=== PATIENT | female | born 1970 | race Caucasian/White ===

== ENCOUNTER 2022-06-04 11:11 | Inpatient (IN) ==
[2022-06-04 11:44] LABS: Basophils # 0.1 10*3/uL (0.0-0.2); Basophils % 0.6 % (0.0-0.8); Eosinophils # 0.1 10*3/uL (0.0-0.87); Eosinophils % 0.7 % (0.00-10.9); Hematocrit 45.5 VOL% (35.7-47.0); Hemoglobin 15.7 GM/DL (12.0-16.0); Immature Granulocytes % 0.7 %; Immature Granulocytes Absolute 0.08 #; Lymphocytes # 1.8 10*3/uL (1.4-4.0); Mean Corpuscular HGB Conc 34.5 GM/DL (32-36); Mean Corpuscular Volume 96.2 FL (87-102); Mean Platelet Volume 11.3 FL (9.6-12.0); Monocytes # 0.5 10*3/uL (0.11-0.8); Monocytes % 4.6 % (1.7-12.7); Neutrophils % 77.4 % (38.7-73.9); Platelet Count 270 T/CUMM (130-400); Red Blood Count 4.73 MC/CUMM (3.8-5.5); Red Cell Distribution Width 13.6 % (9.3-17.3); White Blood Count 11.4 T/CUMM (4-12)
[2022-06-04 12:12] LABS: Albumin 3.9 G/DL (3.4-5.0); Bilirubin,Total 0.5 MG/DL (0.20-1.00); Calcium 9.7 MG/DL (8.5-10.1); Osmolality,Calculated 293.8 MOS/KG (273-304); Potassium 4.6 MMOL/L (3.5-5.1); Total Protein 7.6 G/DL (6.4-8.2)
[2022-06-04 13:27] LABS: PT Patient Result 10.8 SECS (10.1-12.1); Partial Thromboplastin Time 29.5 SECS (23.7-32.9)
[2022-06-04 14:30] LABS: Hepatitis B Core IgM Quant < 0.05 Index; Hepatitis B Surface Ag Quant < 0.10 Index; Hepatitis B Surface Ag Result Non-Reactive (NonReactive); Hepatitis C Virus Ab Result Non-Reactive (NonReactive)
[2022-06-04] MEDS ORDERED: ONDANSETRON 4 MG/2 ML VIAL IV PRN (14:35)
[2022-06-04] MEDS ORDERED: hydrALAZINE 20 MG/1 ML VIAL IV PRN (14:35)
[2022-06-04] MEDS ORDERED: GLUCAGON 1 MG VIAL IM PRN (14:35)
[2022-06-04] MEDS ORDERED: ALBUTEROL/IPRATROPIUM 3 ML NEB RESP TX PRN (14:35)
[2022-06-04] MEDS ORDERED: DEXTROSE 10% 250 ML BAG IV PRN (14:40)
[2022-06-04] MEDS ORDERED: ENOXAPARIN 120 MG/0.8 ML SYRINGE SUBCUT SCH (15:00)
[2022-06-04] MEDS: PANTOPRAZOLE 40 MG TABLET PO SCH (16:51)
[2022-06-04] MEDS: INSULIN REGULAR 100 UNIT/ML SUBCUT SCH ×2 (18:07→21:14)
[2022-06-05 04:33] LABS: Basophils # 0.1 10*3/uL (0.0-0.2); Basophils % 0.5 % (0.0-0.8); Eosinophils # 0.2 10*3/uL (0.0-0.87); Eosinophils % 1.4 % (0.00-10.9); Hematocrit 44.7 VOL% (35.7-47.0); Hemoglobin 14.9 GM/DL (12.0-16.0); Immature Granulocytes % 0.4 %; Immature Granulocytes Absolute 0.05 #; Lymphocytes # 4.9 10*3/uL (1.4-4.0); Mean Corpuscular HGB Conc 33.3 GM/DL (32-36); Mean Corpuscular Volume 98.5 FL (87-102); Mean Platelet Volume 11.4 FL (9.6-12.0); Monocytes # 0.8 10*3/uL (0.11-0.8); Monocytes % 6.2 % (1.7-12.7); Neutrophils % 54.5 % (38.7-73.9); Platelet Count 253 T/CUMM (130-400); Red Blood Count 4.54 MC/CUMM (3.8-5.5); Red Cell Distribution Width 13.7 % (9.3-17.3); White Blood Count 13.3 T/CUMM (4-12)
[2022-06-05 05:01] LABS: Alanine Aminotransferase 99 U/L (13-56); Albumin 3.3 G/DL (3.4-5.0); Alkaline Phosphatase 123 U/L (45-117); Aspartate Amino Transferase 101 U/L (0-37); Bilirubin,Indirect 0.3 MG/DL (0.0-1.0); Bilirubin,Total < 0.39 MG/DL (0.20-1.00); Total Protein 7.3 G/DL (6.4-8.2)
[2022-06-05 05:02] LABS: Calcium 9.2 MG/DL (8.5-10.1); Osmolality,Calculated 288.8 MOS/KG (273-304); Potassium 3.6 MMOL/L (3.5-5.1); Risk Ratio 8.5; Thyroid Stimulating Hormone 3.24 uIU/ml (0.358-3.74); VLDL Cholesterol 64.4 MG/DL
[2022-06-05] MEDS ORDERED: ASPIRIN 325 MG TABLET PO STA (05:26)
[2022-06-05] MEDS: ENOXAPARIN 120 MG/0.8 ML SYRINGE SUBCUT SCH ×2 (06:00→17:27)
[2022-06-05] MEDS: INSULIN REGULAR 100 UNIT/ML SUBCUT SCH ×4 (07:41→21:24)
[2022-06-05] MEDS ORDERED: MAGNESIUM SULF RIDER 2 GM/50 ML PREMIX IV PRN (09:07)
[2022-06-05] MEDS ORDERED: POTASSIUM CHLORIDE RIDER 10 MEQ/100 ML PREMIX IV PRN (09:07)
[2022-06-05] MEDS ORDERED: DIAZEPAM 5 MG TABLET ONE (10:50)
[2022-06-05] MEDS ORDERED: diphenhydrAMINE CAP 25 MG CAPSULE ONE (10:50)
[2022-06-05] MEDS ORDERED: HEPARIN/NACL 0.9% 2 UNITS/ML 2,000 UNIT/1,000 ML BAG IV ONE (11:34)
[2022-06-05] MEDS ORDERED: VERAPAMIL 5 MG/2 ML VIAL ONE (11:34)
[2022-06-05] MEDS ORDERED: NITROGLYCERIN DRIP 50 MG/250 ML BOTTLE IV ONE (11:34)
[2022-06-05] MEDS ORDERED: DIAZEPAM 5 MG TABLET PO ONE (12:00)
[2022-06-05] MEDS ORDERED: diphenhydrAMINE CAP 50 MG CAPSULE PO ONE (12:00)
[2022-06-05] MEDS ORDERED: MIDAZOLAM 2 MG/2 ML VIAL ONE (12:01)
[2022-06-05] MEDS ORDERED: HYDROmorphone 1 MG/1 ML SYRINGE ONE (12:01)
[2022-06-05] MEDS: METOPROLOL TARTRATE 25 MG TABLET PO SCH ×2 (13:44→21:15)
[2022-06-05] MEDS: SODIUM CHLORIDE 0.9% 1,000 ML IV SCH ×2 (13:44→16:56)
[2022-06-05] MEDS: PANTOPRAZOLE 40 MG TABLET PO SCH (13:44)
[2022-06-05] MEDS: OMEGA 3 ACID ETHYL ESTERS 1 GM CAPSULE PO SCH ×2 (13:45→21:15)
[2022-06-05] MEDS ORDERED: ROSUVASTATIN 20 MG TABLET PO SCH (21:00)
[2022-06-06 01:51] VITALS: BP 121/50
[2022-06-06] MEDS ORDERED: FUROSEMIDE 40 MG TABLET PO SCH (09:00)
[2022-06-06] MEDS ORDERED: ASPIRIN EC 81 MG TABLET PO SCH (09:00)
[2022-06-06] MEDS ORDERED: POTASSIUM CHLORIDE 10 MEQ TABLET PO SCH (09:00)
== END 2022-06-06 01:40 | disposition hospice, home (50) | DRG 281 ==
LOC: N.EDINP 11:11 → N.ED 11:11 → SUATTDRO 14:35 → N.2W 06-05 10:45
PROVIDERS: ADMIT Internal Medicine; ATTEND Internal Medicine Cardiovascular Disease
PROC: CLCCHCL (ICD-10-PCS; 2022-06-05 12:45)